=== PATIENT | male | born 1955 | race Caucasian/White ===

== ENCOUNTER → 2023-11-16 09:39 | Outpatient (CLI) | payer MEDICARE, OTHER, SELFPAY ==
[2023-11-16 20:07] LABS: Add Manual Diff / Slide Review NO; Basophils Absolute Auto 0 /uL (0-100); Basophils Percent Auto 0.5 % (0-2); Eosinophils Absolute Auto 200 /uL (0-450); Eosinophils Percent Auto 1.9 % (2-4); Hematocrit 44.7 % (41-53); Hemoglobin 15.1 g/dL (13.5-17.5); Lymphocytes Absolute Auto 1300 /uL (1100-4500); Lymphocytes Percent Auto 15.9 % (25-40); Mean Corpuscular HGB Conc 33.8 % (30-36); Mean Corpuscular Hemoglobin 30.2 PG (26-34); Mean Corpuscular Volume 89.3 fL (80-100); Monocytes Absolute Auto 700 /uL (0-900); Monocytes Percent Auto 8.9 % (3-14); Neutrophils Absolute Auto 5800 /uL (1500-7000); Neutrophils Percent Auto 72.8 % (50-75); Platelet Count 232 X10^3/uL (150-400); Red Blood Cell Count 5.01 X10^6/uL (4.5-5.9); Red Cell Distribution Width 13.1 % (11.6-14.8)
[2023-11-16 20:25] LABS: Alanine Aminotransferase 42 IU/L (<50); Albumin 4.3 g/dL (3.5-5.0); Albumin Globulin Ratio 1.3 (1.0-2.8); Alkaline Phosphatase 73 U/L (38-126); Aspartate Aminotransferase 54 IU/L (17-59); BUN Creatinine Ratio 24.3 (6-22); Bilirubin Total 0.9 mg/dL (0.2-1.3); Blood Urea Nitrogen 17 mg/dL (9-20); Calcium 9.2 mg/dL (8.4-10.2); Carbon Dioxide 26 mmol/L (22-32); Chloride 105 mmol/L (98-107); Cholesterol 197 mg/dL (140-199); Estimated Glomerular Filt Rate > 60 mL/min (>60); Globulin 3.3 g/dL (1.7-4.1); Glucose 123 mg/dL (80-110); HDL Cholesterol 32 mg/dL (40-60); HEMOLYSIS < 15 (0-50); LDL Cholesterol Calculated 143 mg/dL (<100); Potassium 3.7 mmol/L (3.4-5.1); Sodium 140 mmol/L (137-145); Total Protein 7.6 g/dL (6.3-8.2); Triglycerides 112 mg/dL (35-150)
[2023-11-16 20:36] LABS: Vitamin D 25 Hydroxy (D3) 53.4 ng/mL (30.0-100.0)
[2023-11-16 20:44] LABS: Prostate Specific Antigen 2.23 ng/mL (0.10-4.00)
== END ==
PROVIDERS: PCP Family Medicine; Visit Provider Family Medicine
DX: I10 Essential (primary) hypertension (principal); N52.9 Male erectile dysfunction, unspecified; N40.0 Benign prostatic hyperplasia without lower urinary tract symptoms; Z00.00 Encounter for general adult medical examination without abnormal findings; Z12.5 Encounter for screening for malignant neoplasm of prostate
CPT/HCPCS: 80053; 80061; 82306; 83036; 84153; 85025

== ENCOUNTER → 2024-05-23 10:26 | Outpatient (CLI) | payer MEDICARE, OTHER, SELFPAY ==
[2024-05-23 20:40] LABS: BUN Creatinine Ratio 23.3 (6-22); Blood Urea Nitrogen 17 mg/dL (9-20); Carbon Dioxide 28 mmol/L (22-32); Chloride 109 mmol/L (98-107); Cholesterol 191 mg/dL (140-199); Estimated Glomerular Filt Rate > 60 mL/min (>60); Glucose 115 mg/dL (80-110); HDL Cholesterol 41 mg/dL (40-60); HEMOLYSIS < 15 (0-50); LDL Cholesterol Calculated 127 mg/dL (<100); Potassium 4.3 mmol/L (3.4-5.1); Sodium 140 mmol/L (137-145); Triglycerides 117 mg/dL (35-150)
[2024-05-23 21:12] LABS: TSH w/ Reflex to FT4 2.58 uIU/mL (0.47-4.68)
== END ==
PROVIDERS: PCP Family Medicine; Referring Provider Family Medicine; Visit Provider Family Medicine
DX: I10 Essential (primary) hypertension (principal); E78.5 Hyperlipidemia, unspecified; R73.01 Impaired fasting glucose
CPT/HCPCS: 80048; 80061; 84443

== ENCOUNTER 2024-09-01 10:42 | Inpatient (IN) | payer MEDICARE, OTHER, SELFPAY ==
[2024-09-01 10:43] VITALS: BP 166/83; PULSE 71; RESP 14; TEMP 36.5; O2SAT 95; BMI 33.0
[2024-09-01 10:51] VITALS: BP 166/83; PULSE 72; O2SAT 95
--- NOTE | 2024-09-01 10:52 | EKG_ITS ---
[address] [address] Test Date: 2024-09-01 Pat Name: Villa Eisenberg Department: [facility] Room: Gender: Male Clerical Assigner: EVERETTE : 1955 Requested By: Order Number: [id number] Reading MD: Sanjay Orr MD Measurements Intervals [place] Rate: 68 P: 40 VA: 204 QRS: 30 QRSD: 98 T: 27 QT: 408 QTc: 433 Interpretive Statements Normal sinus rhythm Electronically Signed On 09-01-2024 15:13:54 PST by Sanjay Orr MD
[2024-09-01 11:00] VITALS: PULSE 70; O2SAT 96
[2024-09-01 11:24] LABS: Add Manual Diff / Slide Review NO; Basophils Absolute Auto 100 /uL (0-100); Basophils Percent Auto 0.6 % (0-2); Eosinophils Absolute Auto 100 /uL (0-450); Eosinophils Percent Auto 0.9 % (2-4); Hematocrit 45.3 % (41-53); Hemoglobin 14.9 g/dL (13.5-17.5); Lymphocytes Absolute Auto 900 /uL (1100-4500); Lymphocytes Percent Auto 7.1 % (25-40); Mean Corpuscular HGB Conc 32.9 % (30-36); Mean Corpuscular Hemoglobin 30.2 PG (26-34); Monocytes Absolute Auto 1100 /uL (0-900); Neutrophils Absolute Auto 10900 /uL (1500-7000); Neutrophils Percent Auto 83.4 % (50-75); Platelet Count 247 X10^3/uL (150-400); Red Blood Cell Count 4.93 X10^6/uL (4.5-5.9); Red Cell Distribution Width 13.3 % (11.6-14.8); White Blood Cell Count 13.1 X10^3/uL (4.5-11.0)
[2024-09-01 11:30] VITALS: BP 154/79; PULSE 65; O2SAT 96
[2024-09-01 11:35] LABS: Alanine Aminotransferase 43 IU/L (<50); Albumin 4.4 g/dL (3.5-5.0); Albumin Globulin Ratio 1.4 (1.0-2.8); Alkaline Phosphatase 83 U/L (38-126); Aspartate Aminotransferase 32 IU/L (17-59); BUN Creatinine Ratio 15.1 (6-22); Bilirubin Total 0.8 mg/dL (0.2-1.3); Blood Urea Nitrogen 16 mg/dL (9-20); Calcium 9.1 mg/dL (8.4-10.2); Carbon Dioxide 28 mmol/L (22-32); Chloride 107 mmol/L (98-107); Estimated Glomerular Filt Rate > 60 mL/min (>60); Globulin 3.2 g/dL (1.7-4.1); Glucose 106 mg/dL (80-110); HEMOLYSIS < 15 (0-50); Lipase 82 U/L (23-300); Potassium 4.2 mmol/L (3.4-5.1); Sodium 140 mmol/L (137-145); Total Protein 7.6 g/dL (6.3-8.2)
--- NOTE | 2024-09-01 12:27 | DI.CT.S_ITS ---
PROCEDURE: CT ABDOMEN PELVIS W CON INDICATIONS: rlq pain TECHNIQUE: After the administration of intravenous contrast, axial sections acquired from the lung bases to the pubic symphysis. Coronal and sagittal reformats were performed. For radiation dose reduction, the following was used: automated exposure control, adjustment of mA and/or kV according to patient size. COMPARISON: None. FINDINGS: Image quality: Diagnostic. Lower Chest: No significant findings. ABDOMEN: Liver: No solid mass. Tiny hypoattenuating lesions are seen in the liver that are too small to characterize. Gallbladder: No radiopaque gallstones or wall thickening. Biliary ducts: No biliary dilation. Pancreas: No ductal dilation. Spleen: Size is within normal limits. A few small hypoattenuating lesions in the spleen are nonspecific and likely benign. Adrenal Glands: No adrenal nodules. Kidneys and Ureters: No hydronephrosis. A 2.5 cm lesion is seen at the superior pole of the left kidney measuring approximately 48 Hounsfield units). Benign low-density cysts are seen in the kidneys bilaterally. 3 mm nonobstructing calculus at the inferior pole of the right kidney. No ureteral calculus. Stomach and Bowel: The appendix measures approximately 12 mm and diameter with mild periappendiceal fat stranding. No fluid collection or pneumoperitoneum. No signs of small bowel obstruction. Peritoneum: No abnormal intraperitoneal fluid. No free air. Ventral Wall: Small fat containing periumbilical hernia. Abdominal Nodes: No retroperitoneal or mesenteric adenopathy by size criteria. Vessels: Aorta and inferior vena cava are normal in size. PELVIS: Pelvic Organs: Prostate is enlarged. Bladder: No bladder wall thickening, accounting for underdistention. Pelvic Nodes: No enlarged lymph nodes. Miscellaneous: Small bilateral fat containing inguinal hernias. Bones: No aggressive osseous abnormality. Sclerotic lesions in the left 8th rib for most likely bone islands. Densely sclerotic lesion in the right iliac bone and left acetabulum also likely represent bone islands. IMPRESSION: 1. Findings suspicious for acute appendicitis. Appendix is dilated to 12 mm with mild periappendiceal fat stranding. No appendicolith. No signs of rupture. 2. Nonobstructing 3 mm calculus at the inferior pole the right kidney. 3. Indeterminate intermediate-attenuation lesion at the superior pole of the left kidney, possibly a hemorrhagic or proteinaceous cyst versus solid mass. Recommend outpatient renal ultrasound for further evaluation. 4. Prostatomegaly. Findings were discussed with the referring provider, Dr. Álvarez, by telephone on 09/01/2024 at 1:11 PM. Approved by: Ty Stroud M.D. on 09/01/2024 at 13:12
--- NOTE | 2024-09-01 12:42 | ED.ABDPAIN ---
HPI - Abdominal Pain General Chief Complaint: Abdominal Pain Stated Complaint: Lower right side pain Time Seen by Provider: 09/01/24 12:20 Source: patient Mode of arrival: Ambulatory History of Present Illness HPI narrative: Patient is 69-year-old male with history of hypertension presenting today with right lower quadrant pain. He reports that he was at his baseline yesterday. He reports no abnormalities he ate dinner and woke up this morning around 4:00 a.m. with sudden right-sided pain. He denies any flank pain or radiation to his groin. He has previously had kidney stones this is not feel the same. No nausea or vomiting. He did have some cranberry juice with creatinine at 4:00 a.m.. No chest pain palpitations or other symptoms. Denies any fever. Car ride over did not hurt. Wanting anything for pain. Related Data Home Medications Medication Instructions Recorded Confirmed ascorbic acid (vitamin C) 500 mg 500 mg PO DAILY 10/14/23 09/01/24 capsule cholecalciferol (vitamin D3) 25 75 mcg PO DAILY 10/14/23 09/01/24 mcg (1,000 unit) capsule (Vitamin D3) magnesium oxide 420 mg tablet 420 mg PO DAILY 10/14/23 09/01/24 omega 9-wev-lxg-fish oil 60 mg-90 1 cap PO DAILY 10/14/23 09/01/24 mg-500 mg capsule (Fish Oil) vitamin B complex-folic acid 0.4 1 tab PO DAILY 10/14/23 09/01/24 mg tablet zinc acetate 50 mg (zinc) capsule 50 mg PO DAILY 10/14/23 09/01/24 Previous Rx's Medication Instructions Recorded sildenafil 100 mg tablet (Viagra) 50 - 100 mg (0.5 - 1 x 100 mg) PO 10/14/23 DAILY PRN sexual activity #30 tabs olmesartan 40 mg tablet 40 mg PO DAILY blood pressure #90 12/15/23 tabs Allergies Allergy/AdvReac Type Severity Reaction Status Date / Time No Known Drug Allergies Allergy Verified 09/01/24 10:53 Patient History Medical History Hypothyroidism IFG (impaired fasting glucose) Hyperlipidemia Encounter for subsequent annual wellness visit (AWV) in Medicare patient BPH (benign prostatic hyperplasia) Erectile dysfunction Benign essential HTN Social History household members: spouse Smoking Status: Never smoker Smoking Status: Never smoker alcohol intake frequency: holidays/special occasions only Substance Use Type: does not use Exam Initial Vital Signs Initial Vital Signs: Vital Signs Temperature 97.7 F 09/01/24 10:43 Pulse Rate 71 09/01/24 10:43 Respiratory Rate 14 09/01/24 10:43 Blood Pressure 166/83 H 09/01/24 10:43 Pulse Oximetry 95 09/01/24 10:43 Oxygen Delivery Method Room Air 09/01/24 10:43 GENERAL: Alert well-appearing 69-year-old male and in no acute distress. HEENT: Head atraumatic,EOMI, pupils reactive, face symmetric, moist mucous membranes CARDIOVASCULAR: Regular rate and rhythm without murmurs, rubs or gallops. RESPIRATORY: Breath sounds equal bilaterally, no wheezes rales or rhonchi. ABDOMEN: Soft, tender right lower quadrant without guarding or rebound ambulating without any issues EXTREMITIES: Normal range of motion, no clubbing or edema. Neurovascularly intact NEUROLOGICAL: Alert and oriented x4.Normal gait and speech. SKIN: Warm, dry, no laceration, no petechiae, no rashes or lesions. Course Orders Ordered: ED Orders 09/01/24 10:52 EKG-12 Lead Stat 09/01/24 11:10 Complete Blood Count AUTO DIFF Stat Comprehensive Metabolic Panel Stat Lipase Stat 09/01/24 12:27 CT abdomen pelvis w con Stat 09/01/24 14:24 Education, smoking cessation ONGOING Acetaminophen (Acetaminophen 325 Mg Tablet) 975 mg PO NOW PRN PRN Reason: Pain, Moderate (4-6) Last Admin: 09/01/24 15:48 Dose: 975 mg Documented By: FELIPE Acetaminophen (Acetaminophen 325 Mg Tablet) 650 mg PO Q6H PRN PRN Reason: Fever/Mild Pain (1-3) Hydrocodone Bitart/Acetaminophen (Hydrocodone/Acet 5/325 Tablet) 1 tab PO Q4H PRN PRN Reason: Pain, Moderate (4-6) Hydrocodone Bitart/Acetaminophen (Hydrocodone/Acet 5/325 Tablet) 2 tab PO Q4H PRN PRN Reason: Pain, Severe (7-10) Hydromorphone HCl (Hydromorphone 0.5 Mg Inj) 0.5 mg IV Q2H PRN PRN Reason: Pain, Severe (7-10) Lactated Ringer's (Lactated Ringers) 1,000 mls @ 42 mls/hr IV CONT [facility] Last Admin: 09/01/24 14:56 Dose: Not Given Documented By: FELIPE Lactated Ringer's (Lactated Ringers) 1,000 mls @ 100 mls/hr IV CONT [facility] Last Admin: 09/01/24 14:54 Dose: 100 mls/hr Documented By: FELIPE Piperacillin Sod/Tazobactam (Sod 3.375 gm/ Sodium Chloride) 100 mls @ 25 mls/hr IV Q8H [facility] Last Admin: 09/01/24 18:06 Dose: 25 mls/hr Documented By: FELIPE Ibuprofen (Ibuprofen 600 Mg Tablet) 600 mg PO Q6H PRN PRN Reason: Fever/Mild Pain (1-3) Naloxone HCl (Naloxone 0.4 Mg/Ml Vial) 0.2 mg IV Q2MIN PRN PRN Reason: Opiate Reversal Ondansetron HCl (Ondansetron 4 Mg/2 Ml Inj) 4 mg IV NOW PRN PRN Reason: Nausea And Vomiting Discontinued Medications Piperacillin Sod/Tazobactam (Sod 4.5 gm/ Sodium Chloride) 100 mls @ 200 mls/hr IV NOW ONE Stop: 09/01/24 13:27 Last Admin: 09/01/24 14:18 Dose: 200 mls/hr Documented By: KAMALA Vital Signs Vital signs: Vital Signs - 8 hr 09/01/24 11:30 09/01/24 11:30 09/01/24 14:30 Temperature 97.1 F L Pulse Rate 65 71 Respiratory Rate 16 Blood Pressure 154/79 H 153/77 H Pulse Oximetry 96 97 Oxygen Delivery Method Room Air Oxygen Flow Rate 0 MDM - Abdominal Pain Lab Data 09/01/24 11:10 09/01/24 11:10 Labs: Lab Results 09/01/24 Range/Units 11:10 WBC 13.1 H (4.5-11.0) X10^3/uL RBC 4.93 (4.5-5.9) X10^6/uL Hgb 14.9 (13.5-17.5) g/dL Hct 45.3 (41-53) % MCV 92.0 (80-100) fL MCH 30.2 (26-34) PG MCHC 32.9 (30-36) % RDW 13.3 (11.6-14.8) % Plt Count 247 (150-400) X10^3/uL Neut % (Auto) 83.4 H (50-75) % Lymph % (Auto) 7.1 L (25-40) % [place] % (Auto) 8.0 (3-14) % Eos % (Auto) 0.9 L (2-4) % Baso % (Auto) 0.6 (0-2) % Neut # (Auto) 47323 H (6727-1857) /uL Lymph # (Auto) 900 L (2168-5964) /uL [place] # (Auto) 1100 H (0-900) /uL Eos # (Auto) 100 (0-450) /uL Baso # (Auto) 100 (0-100) /uL Sodium 140 (137-145) mmol/L Potassium 4.2 (3.4-5.1) mmol/L Chloride 107 (98-107) mmol/L Carbon Dioxide 28 (22-32) mmol/L BUN 16 (9-20) mg/dL Creatinine 1.06 (0.66-1.25) mg/dL Estimated GFR > 60 (>60) mL/min BUN/Creatinine Ratio 15.1 (6-22) Glucose 106 (80-110) mg/dL Calcium 9.1 (8.4-10.2) mg/dL Total Bilirubin 0.8 (0.2-1.3) mg/dL AST 32 (17-59) IU/L ALT 43 (<50) IU/L Alkaline Phosphatase 83 (38-126) U/L Total Protein 7.6 (6.3-8.2) g/dL Albumin 4.4 (3.5-5.0) g/dL Globulin 3.2 (1.7-4.1) g/dL Albumin/Globulin Ratio 1.4 (1.0-2.8) Lipase 82 (23-300) U/L Point of care testing: Urine Dip Bedside Urine Glucose Negative Bedside Urine Bilirubin - Negative Bedside Urine Ketone - Negative Urine Specific [place] 1.010 Bedside Urine Occult Blood - Negative Bedside Urine pH 7.5 Bedside Urine Protein - Negative Bedside Urine Urobilinogen - Negative Bedside Urine Nitrite - Negative Bedside Urine Leukocytes - Negative Esterase Imaging Data CT scan - abdomen/pelvis: Radiologist's Impression: PROCEDURE: CT ABDOMEN PELVIS W CON INDICATIONS: rlq pain TECHNIQUE: After the administration of intravenous contrast, axial sections acquired from the lung bases to the pubic symphysis. Coronal and sagittal reformats were performed. For radiation dose reduction, the following was used: automated exposure control, adjustment of mA and/or kV according to patient size. COMPARISON: None. FINDINGS: Image quality: Diagnostic. Lower Chest: No significant findings. ABDOMEN: Liver: No solid mass. Tiny hypoattenuating lesions are seen in the liver that are too small to characterize. Gallbladder: No radiopaque gallstones or wall thickening. Biliary ducts: No biliary dilation. Pancreas: No ductal dilation. Spleen: Size is within normal limits. A few small hypoattenuating lesions in the spleen are nonspecific and likely benign. Adrenal Glands: No adrenal nodules. Kidneys and Ureters: No hydronephrosis. A 2.5 cm lesion is seen at the superior pole of the left kidney measuring approximately 48 Hounsfield units). Benign low-density cysts are seen in the kidneys bilaterally. 3 mm nonobstructing calculus at the inferior pole of the right kidney. No ureteral calculus. Stomach and Bowel: The appendix measures approximately 12 mm and diameter with mild periappendiceal fat stranding. No fluid collection or pneumoperitoneum. No signs of small bowel obstruction. Peritoneum: No abnormal intraperitoneal fluid. No free air. Ventral Wall: Small fat containing periumbilical hernia. Abdominal Nodes: No retroperitoneal or mesenteric adenopathy by size criteria. Vessels: Aorta and inferior vena cava are normal in size. PELVIS: Pelvic Organs: Prostate is enlarged. Bladder: No bladder wall thickening, accounting for underdistention. Pelvic Nodes: No enlarged lymph nodes. Miscellaneous: Small bilateral fat containing inguinal hernias. Bones: No aggressive osseous abnormality. Sclerotic lesions in the left 8th rib for most likely bone islands. Densely sclerotic lesion in the right iliac bone and left acetabulum also likely represent bone islands. IMPRESSION: 1. Findings suspicious for acute appendicitis. Appendix is dilated to 12 mm with mild periappendiceal fat stranding. No appendicolith. No signs of rupture. 2. Nonobstructing 3 mm calculus at the inferior pole the right kidney. 3. Indeterminate intermediate-attenuation lesion at the superior pole of the left kidney, possibly a hemorrhagic or proteinaceous cyst versus solid mass. Recommend outpatient renal ultrasound for further evaluation. 4. Prostatomegaly. Findings were discussed with the referring provider, Dr. Álvarez, by telephone on 09/01/2024 at 1:11 PM. Approved by: Ty Stroud M.D. on 09/01/2024 at 13:12 ECG Data Attestation: I personally reviewed and interpreted this ECG as follows: Interpretation: Normal sinus rhythm rate 60 MT interval 204 QRS [address] changes MDM Narrative Medical decision making narrative: Patient is 69-year-old male presenting today with sudden onset right lower quadrant pain. He is tender on palpation but no other peritoneal signs. Leukocytosis 13.1 CMP electrolytes and kidney function within normal limits CT confirms acute appendicitis dilated at 12 mm with no appendicolith or abscess EKGs reviewed no ischemia Discussion with patient and treatment options including antibiotics [place]. [place] would prefer surgical option if possible Dr. Wilson updated on patient's symptoms test results agrees with admission. Unlikely to get to or until later this afternoon but patient can go up to floor Patient not requiring any pain medication he did get a dose Zosyn. Discharge Plan Departure Patient Disposition: Admitted as Observation Clinical Impression: Acute appendicitis Qualifiers: Acute appendicitis type: with localized peritonitis Appendicitis gangrene presence: without gangrene Appendicitis perforation presence: without perforation Appendicitis abscess presence: without abscess Qualified Code(s): K35.30 - Acute appendicitis with localized peritonitis, without perforation or gangrene Admit Date/Time: 09/01/24 14:42 Admit Provider: Hema Wilson
[2024-09-01] MEDS: PIPERACILLIN/TAZO 4.5 GM in SODIUM CHLORIDE 0.9% 100 ML IV (14:18)
[2024-09-01 14:30] VITALS: BP 153/77; PULSE 71; RESP 16; TEMP 36.2; O2SAT 97
[2024-09-01 14:43] VITALS: BMI 33.0
--- NOTE | 2024-09-01 14:44 | P.HP_ITS ---
History of Present Illness History of Present Illness Date Patient Seen: 09/01/24 Time Patient Seen: 14:44 Chief complaint: Lower right side pain Narrative: Matt is a 69-year-old man who woke up this morning with severe right lower quadrant abdominal pain. He came to the ER and a CT scan demonstrated acute appendicitis. No prior abdominal surgeries besides an open inguinal hernia repair. [facility] Medical History Hypothyroidism IFG (impaired fasting glucose) Hyperlipidemia Encounter for subsequent annual wellness visit (AWV) in Medicare patient BPH (benign prostatic hyperplasia) Erectile dysfunction Benign essential HTN Social History Smoking Status: Never smoker Meds Home Medications and Allergies Home Medications Medication Instructions Recorded Confirmed Type ascorbic acid (vitamin C) 500 mg mg PO .qd 10/14/23 11/24/23 History capsule cholecalciferol (vitamin D3) 25 75 mcg PO DAILY 10/14/23 11/24/23 History mcg (1,000 unit) capsule (Vitamin D3) magnesium oxide 420 mg tablet 420 mg PO DAILY 10/14/23 11/24/23 History omega 0-ewe-guh-fish oil 60 mg-90 1 cap PO DAILY 10/14/23 11/24/23 History mg-500 mg capsule (Fish Oil) sildenafil 100 mg tablet (Viagra) 50 - 100 mg (0.5 - 1 x 100 mg) PO 10/14/23 11/24/23 Rx DAILY PRN sexual activity #30 tabs vitamin B complex-folic acid 0.4 1 tab PO DAILY 10/14/23 11/24/23 History mg tablet zinc acetate 50 mg (zinc) capsule 50 mg PO DAILY 10/14/23 11/24/23 History olmesartan 40 mg tablet 40 mg PO DAILY blood pressure #90 12/15/23 Rx tabs Allergies Allergy/AdvReac Type Severity Reaction Status Date / Time No Known Drug Allergies Allergy Verified 09/01/24 10:53 Exam Vital Signs (past 8 hours): - 09/01/24 10:43 09/01/24 10:51 09/01/24 10:51 Temperature 97.7 F Pulse Rate 71 72 Respiratory Rate 14 Blood Pressure 166/83 H 166/83 H Pulse Oximetry 95 95 Oxygen Delivery Method Room Air 09/01/24 11:00 09/01/24 11:30 09/01/24 11:30 Temperature Pulse Rate 70 65 Respiratory Rate Blood Pressure 154/79 H Pulse Oximetry 96 96 Oxygen Delivery Method Room Air Oxygen Delivery Method Room Air Narrative Exam Narrative: Tender to palpation in the right lower quadrant at McBurney's point Small umbilical hernia Objective Labs 09/01/24 11:10 09/01/24 11:10 Labs: Laboratory Results - last 24 hr 09/01/24 11:10 WBC 13.1 H RBC 4.93 Hgb 14.9 Hct 45.3 MCV 92.0 MCH 30.2 MCHC 32.9 RDW 13.3 Plt Count 247 Neut % (Auto) 83.4 H Lymph % (Auto) 7.1 L [place] % (Auto) 8.0 Eos % (Auto) 0.9 L Baso % (Auto) 0.6 Neut # (Auto) 38983 H Lymph # (Auto) 900 L [place] # (Auto) 1100 H Eos # (Auto) 100 Baso # (Auto) 100 Sodium 140 Potassium 4.2 Chloride 107 Carbon Dioxide 28 BUN 16 Creatinine 1.06 Estimated GFR > 60 BUN/Creatinine Ratio 15.1 Glucose 106 Calcium 9.1 Total Bilirubin 0.8 AST 32 ALT 43 Alkaline Phosphatase 83 Total Protein 7.6 Albumin 4.4 Globulin 3.2 Albumin/Globulin Ratio 1.4 Lipase 82 Assessment & Plan Assessment and plan (1) Acute appendicitis: Qualifiers: Acute appendicitis type: with localized peritonitis Appendicitis gangrene presence: without gangrene Appendicitis perforation presence: without perforation Appendicitis abscess presence: without abscess Qualified Code(s): K35.30 - Acute appendicitis with localized peritonitis, without perforation or gangrene Status: Acute Plan I discussed the various treatment options for acute appendicitis including antibiotics and surgery. He would like to proceed with surgery. We will schedule him for a laparoscopic appendectomy. He has been started on Zosyn. Time-Based Coding :: [TOTAL MINUTES] spent with patient and on the chart (including review of chart, obtaining history, exam, reviewing outside data, placing orders, documenting exam and treatment plan, and counseling patient) on [DATE].
[2024-09-01] MEDS: LACTATED RINGERS 1,000 ML 100 ML IV (14:54)
[2024-09-01] MEDS: ACETAMINOPHEN 325 MG TABLET 975 MG PO (15:48)
[2024-09-01 17:41] LABS: MRSA (Nasal) PCR NOT DETECTED (Not Detect)
[2024-09-01] MEDS: PIPERACILLIN/TAZO 3.375 GM in SODIUM CHLORIDE 0.9% 100 ML IV (18:06)
[2024-09-01 20:00] VITALS: BP 145/70; PULSE 71; RESP 18; TEMP 36.8; O2SAT 95
[2024-09-02] VITALS (11 sets, daily range): BP systolic 146–190; BP diastolic 78–96; PULSE 59–82; RESP 9–20; TEMP 35.9–36.6; O2SAT 91–97; BMI 33.0
--- NOTE | 2024-09-02 | PATH_ITS ---
[facility] Accession Number: [id number] No. of containers..01 Tissue . 01 Material submitted: . appendix - APPENDIX . 01 Diagnosis: APPENDIX, APPENDECTOMY: Acute suppurative appendicitis with serositis. Negative for dysplasia and malignancy. [facility] 09/07/2024 1029 Local . 01 Electronically signed: . Suzanne Estrada MD, Pathologist NPI- [id number] . 01 Gross description: . Received in formalin with no patient identifiers and no site on jar (verification form received from clinic verifying patient name and date of , and states specimen is appendix), is a leyva vermiform appendix (5.2 cm in length by approximately 0.7 cm in diameter) with a mesoappendix up to 2.2 cm. The serosa is smooth with no leyva exudate seen. The margin is inked blue, and the lumen is patent and dilated, containing leyva to brown grumous fecal material. The lumen ranges from 0.5 to 0.1 cm. The marmolejo are leyva to brown with averages of 0.4 cm thick with no perforations or lesions grossly seen. Cadd Manager section to include the margin, one-half of the bisected distal tip, and cross sections submitted in A1. ([id number]) /MRV 09/06/2024 1913 Local . 01 Pathologist provided ICD-10: K35.80 . 01 CPT . 682611 Specimen Comment: A courtesy copy of this report has been sent to [phone] Performed at: [address] [address], [place], [place] [id number] MD Ajit Templeton MD Phone: [phone]
[2024-09-02] MEDS: LACTATED RINGERS 1,000 ML 100 ML IV ×2 (00:35→10:16)
[2024-09-02] MEDS: PIPERACILLIN/TAZO 3.375 GM in SODIUM CHLORIDE 0.9% 100 ML IV ×2 (02:15→09:42)
--- NOTE | 2024-09-02 14:12 | SUR.OPER ---
Supine on padded OR bed, head on pillow, arms secured on padded arm boards at <90 degrees abduction, legs uncrossed, safety belt at thigh, tape over blanket over lower legs.
--- NOTE | 2024-09-02 14:14 | PM.PREOP ---
Pre-operative Note Interval Note History & Physical reviewed/Exam performed by Physician: Yes Changes to H&P: No H&P completed within 30 days and has changed as indicated here:: 69M with acute appendicitis. Labs imaging reviewed. Patient wishes to proceed with laparoscopic appendectomy following discussion of operative risks benefits and alternatives.
[2024-09-02] MEDS: ACETAMINOPHEN IV 1,000 MG/100 ML VIAL 400 MG IV (14:18)
[2024-09-02] MEDS: BUPIVACAINE 0.25% (PF) 30 ML, EPINEPHrine 0.15 MG INJ (15:10)
--- NOTE | 2024-09-02 15:29 | CM.DANOTE ---
Patient is a 69 yo male who was admitted on 09/01/24 for Acute Appendicitis. Pt has MCR and REG for insurance and his PCP is Dr. Vannesa Warner. EMR was reviewed. Per Surgeon, pt preference is surgical intervention rather than attempting conservative tx and surgery scheduled for today. Per RN, pt has been independent in the room and currently no concerns at this time. SW attempted to meet bedside with pt but off the floor for surgery. Patient lives on [address] with his spouse and is independent at baseline. Pt has no hx of admissions to [facility]. Plan: SW to follow closely for progress after lap appe this afternoon to confirm safe d/c home with spouse and any further identified discharge planning needs. JING Diaz Discharge Planning/Care Management CM Discharge Assessment Start: 09/02/24 15:28 Freq: Status: Active Protocol: Document 09/02/24 15:28 BF (Rec: 09/02/24 15:29 BF [id number]) Discharge Planning Assessment Assigned Cloud Infrastructure Architect JING Crawley DPOA/Assigned Designee Name spouse Flora Major Contact Information [phone] Advance Directives? No Advance Directives on File No History Provided By Patient,Medical Record Has Patient been admitted in last 30 No days? Prior Living Arrangements House Household Members spouse Type of transporation used prior to Drives own vehicle admit Independent with ADL's Yes Is patient alert and oriented? Yes Caregiver for Another No Barriers to Discharge No Discharge Plan Home Transportation Arrangement spouse back to [place] Additional Comment Pending surgery and recovery Review Status In Process Please Provide Date Initial DC 09/02/24 Assessment Was Performed Next Review Type Continued Stay Review
--- NOTE | 2024-09-02 15:44 | PM.OP.1 ---
Operative Date/Time/Diagnoses Date of procedure: 09/02/24 Time of procedure: 15:44 Pre-op diagnosis: acute appendicitis Post-op diagnosis: same Procedure & Clinicians Procedure: Laparoscopic appendectomy Same procedure as scheduled: Yes Indications: 69-year-old male with symptoms and radiographic findings consistent with acute appendicitis. Following discussion of medical versus surgical therapy elects to proceed with appendectomy. Surgeon: Garfield Burroughs Click Yes if Unassisted: Yes Anesthesia Type: General Operative Notes Findings: Acutely inflamed non perforated appendicitis Specimen(s): other (Appendix) Estimated Blood Loss (mL): 20 Procedure in detail: Patient was brought to the operating room placed supine on the table. Bilateral lower extremity compression devices were applied. Anesthesia was induced and they intubated with an endotracheal tube. They received 3.375 g of Zosyn prior to skin incision. The left arm was tucked and appropriately padded. They were prepped and draped in sterile fashion. Time-out was performed. An infraumbilical incision was made the umbilical stalk was grasped and elevated and incision was made and the abdomen was entered atraumatically. A 12 mm balloon trocar was then placed through the incision and pneumoperitoneum of 14 mm Hg was established. The scope was then inserted and the abdomen inspected, there was no evidence of injury upon entry. Two 5 mm ports were placed under direct visualization, one in the left lower quadrant and second in the lower midline. A thorough laparoscopic evaluation was performed inspecting all four quadrants. The patient was then tilted right side up. The small bowel was then swept to the upper aspect of the abdomen. The tenie were followed to the base of the cecum where the appendix was identified. The appendix was was mobilized from its lateral attachments. It was acutely inflamed but not perforated. The appendix was grasped and a window within the mesentery was made at the base of the appendix using the [place] dissector with care to avoid injuring the cecum. The mesoappendix was then divided using the endo-stapler with a staple length of 2.5 mm-white load. The mesenteric staple line was inspected for hemostasis. The appendix was then amputated flush at the cecum using the endo-stapler blue load. The specimen was retrieved using a endoscopic retrieval bag through the 10 mm infra-umbilical port. The right paracolic gutter and the pouch of Hill were irrigated The 5 mm ports were then removed under direct visualization. The umbilical fascial incision was closed with 0 Vicryl in a figure-eight fashion. The skin wounds were irrigated and closed with 4-0 Monocryl followed by the application of Dermabond. Sponge instrument count at the end of the operation was correct. The patient tolerated procedure well was extubated and transferred to the postoperative care unit in stable condition. Complications: none Post-operative Condition: stable Disposition: Acute Care
[2024-09-02] MEDS: ACETAMINOPHEN 325 MG TABLET 650 MG PO (16:15)
[2024-09-02] MEDS: SODIUM CHLORIDE 0.9% FLUSH 10 ML IV (20:04)
[2024-09-03 01:58] VITALS: BP 134/74; PULSE 75; RESP 18; TEMP 36.1; O2SAT 93
[2024-09-03] MEDS: ACETAMINOPHEN 325 MG TABLET 650 MG PO (07:47)
--- NOTE | 2024-09-03 10:30 | CM.DPNOTE ---
DCP Note GIN POLE OPERATOR reviewed EMR. Per chart review, pt cleared to dc home with family today. Pt lives on [facility]. GIN POLE OPERATOR met with spouse Flora in room, pt in bathroom. Flora [place] ferry [place]. Denies any DCP/CM needs at this time. P: home with spouse support, [address] no identified barriers to safe dc home at this time. CM team will continue to follow as needed JING Nelson
== END 2024-09-03 10:37 | disposition home or self-care (01) | DRG 399 ==
LOC: ED 13:36 → ICU 14:51 → AC 09-02 09:09 → ICU 09-02 09:12
PROVIDERS: Surgery; Admitting Provider Surgery; Emergency Provider Emergency Medicine; PCP Family Medicine; Referring Provider Emergency Medicine; Visit Provider Surgery
PROC: 0DTJ4ZZ Resection of Appendix, Percutaneous Endoscopic Approach (ICD-10-PCS; CPT 44970; principal; 2024-09-02 15:30)
DX: K35.30 Acute appendicitis with localized peritonitis, without perforation or gangrene (principal)
CPT/HCPCS: 36415; 44970; 74177; 80053; 81003; 83690; 85025; 87797; 93005; 93010; 99222; 99284; 99285; J0134; J0171; J1100; J2543; J2704; J3010; Q9967

== ENCOUNTER 2024-09-10 08:31 | Emergency (ER) | payer MEDICARE, OTHER, SELFPAY ==
--- NOTE | 2024-09-10 08:42 | ED.GENADULT ---
HPI - General Adult General Chief complaint: Abdominal Pain Stated complaint: lower abd pain t-1 Time Seen by Provider: 09/10/24 08:33 Source: patient Mode of arrival: Ambulatory Limitations: no limitations History of Present Illness HPI narrative: Patient is a 69-year-old male who 1 week ago underwent a laparoscopic appendectomy for what appears to be an uncomplicated appendicitis. He states that the procedure went well. He has been resting for the past week. He states that the postoperative pain that he was having was improving nicely. He was urinating without difficulty. Normal bowel movements. No vomiting. No fevers. Wounds are healing well. He states that yesterday he started to have an increase in the discomfort in his right lower quadrant that is worsened over the past 24 hours. Related Data Home Medications Medication Instructions Recorded Confirmed ascorbic acid (vitamin C) 500 mg 500 mg PO DAILY 10/14/23 09/01/24 capsule cholecalciferol (vitamin D3) 25 75 mcg PO DAILY 10/14/23 09/01/24 mcg (1,000 unit) capsule (Vitamin D3) magnesium oxide 420 mg tablet 420 mg PO DAILY 10/14/23 09/01/24 omega 7-flk-dia-fish oil 60 mg-90 1 cap PO DAILY 10/14/23 09/01/24 mg-500 mg capsule (Fish Oil) vitamin B complex-folic acid 0.4 1 tab PO DAILY 10/14/23 09/01/24 mg tablet zinc acetate 50 mg (zinc) capsule 50 mg PO DAILY 10/14/23 09/01/24 Previous Rx's Medication Instructions Recorded sildenafil 100 mg tablet (Viagra) 50 - 100 mg (0.5 - 1 x 100 mg) PO 10/14/23 DAILY PRN sexual activity #30 tabs olmesartan 40 mg tablet 40 mg PO DAILY blood pressure #90 12/15/23 tabs acetaminophen 325 mg capsule 650 mg (2 x 325 mg) PO QID PRN 09/02/24 (Tylenol) pain #60 caps celecoxib 200 mg capsule (Celebrex) 200 mg PO BID #20 caps 09/02/24 tramadol 50 mg tablet 50 mg PO Q6H PRN pain #15 tabs 09/02/24 Allergies Allergy/AdvReac Type Severity Reaction Status Date / Time No Known Drug Allergies Allergy Verified 09/10/24 08:48 Review of Systems Review of Systems ROS Unobtainable: All systems reviewed & are unremarkable except as noted in HPI and below Patient History Medical History Hypothyroidism IFG (impaired fasting glucose) Hyperlipidemia Encounter for subsequent annual wellness visit (AWV) in Medicare patient BPH (benign prostatic hyperplasia) Erectile dysfunction Benign essential HTN Social History household members: spouse Smoking Status: Never smoker alcohol intake: current Smoking Status: Never smoker alcohol intake frequency: holidays/special occasions only Substance Use Type: does not use Exam Initial Vital Signs Initial Vital Signs: Vital Signs Temperature 97.8 F 09/10/24 08:44 Pulse Rate 66 09/10/24 08:44 Respiratory Rate 17 09/10/24 08:44 Blood Pressure 168/79 H 09/10/24 08:44 Pulse Oximetry 98 09/10/24 08:44 Oxygen Delivery Method Room Air 09/10/24 08:44 Const General: cooperative, comfortable and No ill appearing [facility] Head: normal to inspection and normocephalic Resp Effort & Inspection: normal respiratory effort GI Other: Patient was right lower quadrant abdominal pain. No guarding. No rebound. Skin Other: Abdominal surgical incisions appears well. No dehiscence. No surrounding erythema. Dermabond is still in place. No drainage. Neuro General: patient alert and patient awake Course Orders Ordered: ED Orders 09/10/24 08:43 CT abdomen pelvis w con Stat 09/10/24 08:55 Complete Blood Count AUTO DIFF Stat 09/10/24 09:30 Basic Metabolic Panel Stat Vital Signs Vital signs: Vital Signs - 8 hr 09/10/24 08:44 Temperature 97.8 F Pulse Rate 66 Respiratory Rate 17 Blood Pressure 168/79 H Pulse Oximetry 98 Oxygen Delivery Method Room Air Medical Decision Making Medical Records Medical records reviewed: Yes I reviewed the patient's medical records. Lab Data Lab results reviewed: Yes I reviewed the patient's lab results. 09/10/24 08:55 09/10/24 09:30 Labs: Lab Results 09/10/24 09/10/24 Range/Units 08:55 09:30 WBC 9.3 (4.5-11.0) X10^3/uL RBC 4.86 (4.5-5.9) X10^6/uL Hgb 14.9 (13.5-17.5) g/dL Hct 44.3 (41-53) % MCV 91.0 (80-100) fL MCH 30.7 (26-34) PG MCHC 33.8 (30-36) % RDW 13.4 (11.6-14.8) % Plt Count 270 (150-400) X10^3/uL Neut % (Auto) 72.2 (50-75) % Lymph % (Auto) 14.9 L (25-40) % [place] % (Auto) 10.1 (3-14) % Eos % (Auto) 2.1 (2-4) % Baso % (Auto) 0.7 (0-2) % Neut # (Auto) 6700 (2191-9426) /uL Lymph # (Auto) 1400 (6215-4077) /uL [place] # (Auto) 900 (0-900) /uL Eos # (Auto) 200 (0-450) /uL Baso # (Auto) 100 (0-100) /uL Sodium 140 (137-145) mmol/L Potassium 4.3 (3.4-5.1) mmol/L Chloride 107 (98-107) mmol/L Carbon Dioxide 28 (22-32) mmol/L BUN 20 (9-20) mg/dL Creatinine 0.83 (0.66-1.25) mg/dL Estimated GFR > 60 (>60) mL/min BUN/Creatinine Ratio 24.1 H (6-22) Glucose 111 H (80-110) mg/dL Calcium 9.0 (8.4-10.2) mg/dL Imaging Data CT scan - abdomen/pelvis: Radiologist's Impression: PROCEDURE: CT ABDOMEN PELVIS W CON INDICATIONS: Appendectomy 1 week ago with increased RLQ pain TECHNIQUE: After the administration of intravenous contrast, axial sections acquired from the lung bases to the pubic symphysis. Coronal and sagittal reformats were performed. For radiation dose reduction, the following was used: automated exposure control, adjustment of mA and/or kV according to patient size. COMPARISON: [facility], CT, CT ABDOMEN PELVIS W CON, 09/01/2024, 12:36. FINDINGS: Lower thorax: The lung bases are clear. Heart size normal. No hiatal hernia. Liver: Normal in size and attenuation. No contour deformity present. Biliary system: No calcified cholelithiasis or pericholecystic inflammation. No intra or extrahepatic bile duct dilatation. Pancreas: Unremarkable without mass or inflammation evident. Spleen: Normal in size and density. Adrenals: Normal morphology and density. Reproductive system: Hypertrophic prostate Urinary system: Nonobstructing right renal calculus. Bilateral renal cortical cysts. No hydronephrosis. Gastrointestinal system: The bowel is unremarkable without evidence of bowel obstruction or inflammation. The stomach appears unremarkable. Moderate fecal debris throughout the colon Appendix: Appendectomy. No abscess. Peritoneal spaces: No mesenteric or retroperitoneal adenopathy. No free air. No free fluid. Vasculature: The IVC, aorta and iliac vasculature are unremarkable. Abdominal wall: Bilateral inguinal hernia(s) contain fat without bowel involvement. Periumbilical ventral hernia also noted containing fat Musculoskeletal: Normal bone mineralization. Degenerative disc disease and arthropathy noted in lower lumbar spine. No acute fractures. Multifocal sclerotic lesions in the bilateral iliac, L4, left 8th rib bones. IMPRESSION: Appendectomy without evidence of postoperative complication. No abscess or free air. Prostate hypertrophy and multifocal osseous sclerotic lesions. While this could reflect benign prostatic hypertrophy and several scattered bone islands, consider follow-up nonemergent bonescan to further assess. MDM Narrative Medical decision making narrative: CT scan today shows no acute pathology. We did discuss the enlarged prostate in the sclerotic lesions. He states his brother had a history of prostate cancer. He gets his PSA checked on a yearly basis. He was a follow-up with the general surgeon next week. Dr. Morales general surgeon on-call saw the patient here in the emergency department. We will discharge patient home with specific return precautions. Discharge Plan Departure Patient Disposition: Home Clinical Impression: Post-operative pain Instructions: DI for Abdominal Pain-Adult Activity Restrictions/Additional Instructions: Continue to take all of your medications as directed. Keep all of your scheduled medical appointments to include your follow-up appointment with the general surgery department next week. Return to the emergency department for new symptoms. Prescriptions: No Action olmesartan 40 mg tablet 40 mg PO DAILY Qty: 90 3RF zinc acetate 50 mg (zinc) capsule 50 mg PO DAILY vitamin B complex-folic acid 0.4 mg tablet 1 tab PO DAILY magnesium oxide 420 mg tablet 420 mg PO DAILY ascorbic acid (vitamin C) 500 mg capsule 500 mg PO DAILY omega 7-nyu-jhu-fish oil [Fish Oil] 60-90-500 mg capsule 1 cap PO DAILY cholecalciferol (vitamin D3) [Vitamin D3] 25 mcg (1,000 unit) capsule 75 mcg PO DAILY sildenafil [Viagra] 100 mg tablet 50 - 100 mg PO DAILY PRN (Reason: sexual activity) Qty: 30 11RF Patient Comments: has not taken in several days Rx Instructions: take 30 minutes to 4 hours before activity celecoxib [Celebrex] 200 mg capsule 200 mg PO BID Qty: 20 0RF tramadol 50 mg tablet 50 mg PO Q6H PRN (Reason: pain) Qty: 15 0RF acetaminophen [Tylenol] 325 mg capsule 650 mg PO QID PRN (Reason: pain) Qty: 60 0RF Referrals: Vannesa Warner DO [Primary Care Provider] - Stand Alone Forms: Patient Portal/API/Survey
[2024-09-10 08:44] VITALS: BP 168/79; PULSE 66; RESP 17; TEMP 36.6; O2SAT 98; BMI 33.0
[2024-09-10 09:08] LABS: Add Manual Diff / Slide Review NO; Basophils Absolute Auto 100 /uL (0-100); Basophils Percent Auto 0.7 % (0-2); Eosinophils Absolute Auto 200 /uL (0-450); Eosinophils Percent Auto 2.1 % (2-4); Hematocrit 44.3 % (41-53); Hemoglobin 14.9 g/dL (13.5-17.5); Lymphocytes Absolute Auto 1400 /uL (1100-4500); Lymphocytes Percent Auto 14.9 % (25-40); Mean Corpuscular HGB Conc 33.8 % (30-36); Mean Corpuscular Hemoglobin 30.7 PG (26-34); Monocytes Absolute Auto 900 /uL (0-900); Monocytes Percent Auto 10.1 % (3-14); Neutrophils Absolute Auto 6700 /uL (1500-7000); Neutrophils Percent Auto 72.2 % (50-75); Platelet Count 270 X10^3/uL (150-400); Red Blood Cell Count 4.86 X10^6/uL (4.5-5.9); Red Cell Distribution Width 13.4 % (11.6-14.8); White Blood Cell Count 9.3 X10^3/uL (4.5-11.0)
[2024-09-10 09:58] LABS: BUN Creatinine Ratio 24.1 (6-22); Blood Urea Nitrogen 20 mg/dL (9-20); Carbon Dioxide 28 mmol/L (22-32); Chloride 107 mmol/L (98-107); Estimated Glomerular Filt Rate > 60 mL/min (>60); Glucose 111 mg/dL (80-110); HEMOLYSIS < 15 (0-50); Potassium 4.3 mmol/L (3.4-5.1); Sodium 140 mmol/L (137-145)
[2024-09-10 10:15] VITALS: BP 144/76; PULSE 68; RESP 16; O2SAT 99
--- NOTE | 2024-09-10 14:37 | P.CONS_ITS ---
History of Present Illness Consult details Date Patient Seen: 09/10/24 Time Patient Seen: 10:00 Chief complaint: lower abd pain t-1 Reason for consult: prior appendectomy with new pain Requesting provider: August Champagne Narrative: This 69-year-old white male who is doing well following laparoscopic appendectomy earlier this week. He had a sudden increase her right lower quadrant pain and presented to the emergency department. He denies fevers or chills, nausea or vomiting. His white blood cell count is normal. New CT scan does not show an abscess, hematoma, or any other concerns her postoperative complication to explain his pain. Meds Home Medications and Allergies Home Medications Medication Instructions Recorded Confirmed Type ascorbic acid (vitamin C) 500 mg 500 mg PO DAILY 10/14/23 09/01/24 History capsule cholecalciferol (vitamin D3) 25 75 mcg PO DAILY 10/14/23 09/01/24 History mcg (1,000 unit) capsule (Vitamin D3) magnesium oxide 420 mg tablet 420 mg PO DAILY 10/14/23 09/01/24 History omega 1-xpw-neu-fish oil 60 mg-90 1 cap PO DAILY 10/14/23 09/01/24 History mg-500 mg capsule (Fish Oil) sildenafil 100 mg tablet (Viagra) 50 - 100 mg (0.5 - 1 x 100 mg) PO 10/14/23 09/01/24 Rx DAILY PRN sexual activity #30 tabs vitamin B complex-folic acid 0.4 1 tab PO DAILY 10/14/23 09/01/24 History mg tablet zinc acetate 50 mg (zinc) capsule 50 mg PO DAILY 10/14/23 09/01/24 History olmesartan 40 mg tablet 40 mg PO DAILY blood pressure #90 12/15/23 09/10/24 Rx tabs acetaminophen 325 mg capsule 650 mg (2 x 325 mg) PO QID PRN 09/02/24 Rx (Tylenol) pain #60 caps celecoxib 200 mg capsule (Celebrex) 200 mg PO BID #20 caps 09/02/24 Rx tramadol 50 mg tablet 50 mg PO Q6H PRN pain #15 tabs 09/02/24 Rx Allergies Allergy/AdvReac Type Severity Reaction Status Date / Time No Known Drug Allergies Allergy Verified 09/10/24 08:48 Exam Vital Signs (past 8 hours): - 09/10/24 08:44 09/10/24 10:15 Temperature 97.8 F Pulse Rate 66 68 Respiratory Rate 17 16 Blood Pressure 168/79 H 144/76 H Pulse Oximetry 98 99 Oxygen Delivery Method Room Air Room Air Oxygen Delivery Method Room Air Narrative Exam Narrative: Patient is sitting up in the ER and appears comfortable and pleasant. Gen: NAD, appears well HEENT: Sclera are anicteric, head is normocephalic and atraumatic, trachea is midline. CV: RRR, no JVD Resp: clear to auscultation bilaterally, equal chest wall movement bilaterally Abd: soft, nontender, normoactive bowel sounds Ext: no edema, full range of motion Neuro: Cranial nerves II-XII grossly intact, no focal deficits Skin: No erythema or ecchymosis Objective Labs 09/10/24 08:55 09/10/24 09:30 Labs: Laboratory Results - last 24 hr 09/10/24 09/10/24 08:55 09:30 WBC 9.3 RBC 4.86 Hgb 14.9 Hct 44.3 MCV 91.0 MCH 30.7 MCHC 33.8 RDW 13.4 Plt Count 270 Neut % (Auto) 72.2 Lymph % (Auto) 14.9 L [place] % (Auto) 10.1 Eos % (Auto) 2.1 Baso % (Auto) 0.7 Neut # (Auto) 6700 Lymph # (Auto) 1400 [place] # (Auto) 900 Eos # (Auto) 200 Baso # (Auto) 100 Sodium 140 Potassium 4.3 Chloride 107 Carbon Dioxide 28 BUN 20 Creatinine 0.83 Estimated GFR > 60 BUN/Creatinine Ratio 24.1 H Glucose 111 H Calcium 9.0 PFSH Medical History Hypothyroidism IFG (impaired fasting glucose) Hyperlipidemia Encounter for subsequent annual wellness visit (AWV) in Medicare patient BPH (benign prostatic hyperplasia) Erectile dysfunction Benign essential HTN Social History household members: spouse Tobacco & Substance Use Smoking Status: Never smoker alcohol intake: current Assessment & Plan Assessment and plan (1) Post-operative pain: Status: Acute Assessment & Plan narrative: CT scan independently reviewed by me does not show any free fluid or abscess. Labs do not show leukocytosis. patient had only been taking Tylenol for pain. Advised him that he may also use the Celebrex or [id number] NSAIDs such as Motrin, ibuprofen to help manage the pain along with the Tylenol. Recommended he may also use a lidocaine patch, heat packs or ice. She will follow up with his operating surgeon as scheduled. Time-Based Coding :: [TOTAL MINUTES] spent with patient and on the chart (including review of chart, obtaining history, exam, reviewing outside data, placing orders, documenting exam and treatment plan, and counseling patient) on [DATE].
== END 2024-09-10 10:15 | disposition home or self-care (01) ==
PROVIDERS: Emergency Provider Emergency Medicine; PCP Family Medicine
DX: G89.18 Other acute postprocedural pain (principal); N40.0 Benign prostatic hyperplasia without lower urinary tract symptoms
CPT/HCPCS: 36415; 74177; 80048; 85025; 99283; 99284; Q9967

== ENCOUNTER → 2024-11-18 10:45 | Outpatient (CLI) | payer MEDICARE, OTHER, SELFPAY ==
[2024-11-18 12:23] LABS: Hemoglobin A1C% w Est Avg Glu 5.8 % (4.0-6.0)
[2024-11-18 12:33] LABS: Alanine Aminotransferase 43 IU/L (<50); Albumin 4.4 g/dL (3.5-5.0); Albumin Globulin Ratio 1.6 (1.0-2.8); Alkaline Phosphatase 70 U/L (38-126); Aspartate Aminotransferase 32 IU/L (17-59); BUN Creatinine Ratio 19.3 (6-22); Bilirubin Total 0.8 mg/dL (0.2-1.3); Blood Urea Nitrogen 17 mg/dL (9-20); Calcium 9.2 mg/dL (8.4-10.2); Carbon Dioxide 28 mmol/L (22-32); Chloride 106 mmol/L (98-107); Cholesterol 186 mg/dL (140-199); Estimated Glomerular Filt Rate > 60 mL/min (>60); Globulin 2.8 g/dL (1.7-4.1); Glucose 109 mg/dL (80-110); HDL Cholesterol 38 mg/dL (40-60); HEMOLYSIS < 15 (0-50); LDL Cholesterol Calculated 126 mg/dL (<100); Potassium 4.3 mmol/L (3.4-5.1); Sodium 140 mmol/L (137-145); Total Protein 7.2 g/dL (6.3-8.2); Triglycerides 110 mg/dL (35-150)
[2024-11-18 12:58] LABS: Prostate Specific Antigen Scrn 2.14 ng/mL (0.1-4.0)
[2024-11-18 13:15] LABS: Hep C Virus Ab w/Reflex Quant NEGATIVE s/c (NEGATIVE)
== END ==
PROVIDERS: PCP Family Medicine; Referring Provider Family Medicine; Visit Provider Family Medicine
DX: R73.01 Impaired fasting glucose (principal); I10 Essential (primary) hypertension; Z12.5 Encounter for screening for malignant neoplasm of prostate; E78.5 Hyperlipidemia, unspecified
CPT/HCPCS: 36415; 80053; 80061; 83036; 86803; G0103

== ENCOUNTER → 2024-11-24 09:03 | Outpatient (CLI) | payer MEDICARE, OTHER, SELFPAY ==
[2024-11-25 12:08] LABS: Fecal Immunochemical Test Negative (Negative)
== END ==
PROVIDERS: PCP Family Medicine; Referring Provider Family Medicine; Visit Provider Family Medicine
DX: Z12.11 Encounter for screening for malignant neoplasm of colon (principal)
CPT/HCPCS: 82274